=== PATIENT | female | born 1950 | race Caucasian/White ===

== ENCOUNTER → 2017-02-04 17:04 | Outpatient (CLI) | payer MEDICARE, BC | END | disposition home or self-care (01) | LOC: D.MAMMO 15:15 | DX: Z12.31 Encounter for screening mammogram for malignant neoplasm of breast (principal) ==

== ENCOUNTER 2018-05-31 05:55 | Day surgery (SDC) | payer MEDICARE, BC ==
[2018-05-30 10:18] LABS: HEMATOCRIT 44.9 % (36.0-48.0); HEMOGLOBIN 15.3 g/dL (12-16); MCH 29.4 pg (26.0-34.0); MCHC 34.1 g/dL (31.0-37.0); MCV 86.2 fL (80.0-100.0); MEAN PLATELET VOLUME 10.4 fL (7.4-10.4); RBC 5.21 10x6/uL (4.00-5.40); RDW 14.2 % (11.5-14.5); WBC 7.7 10x3/uL (4.8-10.8)
[2018-05-30 10:28] LABS: CALC OSMOLALITY 278 mosm/kg (275-300); CALCIUM 9.3 mg/dL (8.5-10.1); CARBON DIOXIDE 27.1 mmol/L (21.0-32.0); CHLORIDE - SERUM 102 mmol/L (98-107); CREATININE - SERUM 0.6 mg/dL (0.6-1.3); GLUCOSE 101 mg/dL (74-106); POTASSIUM - SERUM 4.1 mmol/L (3.5-5.1); SODIUM 139 mmol/L (136-145); UREA NITROGEN 14 mg/dL (7-18); eGFR NON AFRICAN AMERICAN > 90 mL/min (90-120)
[~2018-05-31] VITALS: Ht 154.9 cm; Wt 90.3 kg
--- NOTE | ~2018-05-31 | OP ---
PATIENT NAME: ERICK RODRIGUEZ MEDICAL RECORD: [id number] :52 LOCATION:D.[facility]ERLY [facility] ADMISSION DATE: SURGEON: EUGENIO SHAH MD DATE OF OPERATION: 05/31/2018 PREOPERATIVE DIAGNOSIS: Large anal skin tag, pedunculated, which causes anal soilage and is an irritant. POSTOPERATIVE DIAGNOSES: Large anal skin tag, pedunculated, which causes anal soilage and is an irritant with several anal papilla, also a third-degree internal hemorrhoidal prolapse of the anus that went through the hemorrhoidal columns. The skin tag is associated with a prolapsed hemorrhoidal column as well. PROCEDURES: 1. Anal evaluation under anesthesia. 2. Excision of a single hemorrhoidal column including the internal and external hemorrhoid. 3. Ligation of internal hemorrhoids times 2. SURGEON: Eugenio Shah MD MUSIC EXECUTIVE: None. BLOOD LOSS: Minimal. ANESTHESIA: General. COMPLICATIONS: None. After evaluating the patient's anus, this large pedunculated lesion was associated with internal and external hemorrhoid at the 11 o'clock position and this hemorrhoidal column was prolapse. Additionally, there were 2 other internal hemorrhoidal prolapsed areas and it is uncertain which of these areas was causing irritation and the fecal soilage as well as perianal wetness, all of which is an irritant. I elected to treat all 3 of these in the following manner. The risks, possible complications and alternatives to procedure were explained to the patient. She elects to proceed. OPERATIVE COURSE: The patient was conveyed to the operating room electively on 05/31/2018. General anesthesia was induced by the anesthesia staff. The patient was placed in the lithotomy position. The buttocks were taped laterally. The anus and perianal areas were sterilely prepped and draped. U-shaped anal retractors were placed. I evaluated the anus. There was no anal fissure. No anal fistula. I noted a few anal papilla and these were grasped and cauterized. Two large internal hemorrhoidal bundles, one at 5 o'clock and one at 7 o'clock were ligated with 3-0 Vicryl sutures. The large pedunculated skin tag was at 11 o'clock and was associated with a prolapsed internal and external hemorrhoidal bundle. Stay sutures of 3-0 Vicryl was placed at the apex of the internal hemorrhoid. I OPERATIVE REPORT [id number] ERICK RODRIGUEZ excised the anal skin tag with the hemorrhoidal column utilizing the Harmonic scalpel. I swept down the external anal sphincter as well as the internal anal sphincter in order to protect them. Submucosal flaps were created sharply. I closed the defect with a running 3-0 Vicryl suture and then extended this out on to the anoderm in an intracuticular fashion. I then reinforced this suture line with multiple interrupted horizontal mattress 3-0 Vicryls. A combination of sterile preparation and Marcaine were used to infiltrate the perianal tissues. Gelfoam was applied within the anus and rectum. A topical anesthetic cream was applied to the external hemorrhoids. The patient was then extubated and conveyed to post-anesthesia care unit where she was in stable condition. TRANSINT:[id number] Voice Confirmation ID: [id number] DOCUMENT ID: [id number] EUGENIO SHAH MD at 2125 CC: DUSTY DUMONT, LYNDON BANKS and COOPER DUFFY MD [id number] DICTATION DATE: 05/31/18 0953 DIRECTOR PRODUCT MANAGEMENT: 05/31/18 1030 [facility] 05/31/18 [facility] [address] [place] [address]
[~2018-05-31 05:55] MED LIST: ADIPEX-P37.5 MG PO; DYRENIUM50 MG PO; ESTRACE1 MG PO; LISINOPRIL10 MG PO; VITAMIN D250000 UNIT PO; ZOLOFT25 MG PO; ZYRTEC10 MG PO
[2018-05-31 07:23] VITALS: BP 110/63; Ht 154.9 cm; Wt 90.3 kg
== END 2018-05-31 11:10 | disposition home or self-care (01) ==
LOC: D.OPS 05:55 → D.PAN 08:00 → D.OPS 08:00 → D.PAN 10:00 → D.OPS 11:10
PROVIDERS: Anesthesiology
DX: K64.2 Third degree hemorrhoids (principal); K64.4 Residual hemorrhoidal skin tags; Z01.812 Encounter for preprocedural laboratory examination

== ENCOUNTER 2019-05-31 08:00 | Outpatient (CLI) | payer MEDICARE, BC ==
[2018-05-31 07:23] VITALS: BMI 37.6
== END 2019-05-31 23:59 | disposition home or self-care (01) ==
LOC: D.MAMMO 08:00
PROVIDERS: ATTEND Family Medicine
DX: Z12.31 Encounter for screening mammogram for malignant neoplasm of breast (principal)

== ENCOUNTER → 2020-11-20 17:43 | Outpatient (CLI) | payer MEDICARE, BC ==
[2018-05-31 07:23] VITALS: BMI 37.6
== END | disposition home or self-care (01) ==
LOC: D.MAMMO 11-11 09:45
PROVIDERS: ATTEND Family Medicine
DX: Z12.31 Encounter for screening mammogram for malignant neoplasm of breast (principal)